=== PATIENT | male | born 1960 | race Caucasian/White ===

== ENCOUNTER 2019-03-07 18:01 | Inpatient (IN) ==
[2019-03-07] MEDS ORDERED: NS 1,000 ML IV ONE (18:22)
[2019-03-07 18:42] LABS: BASO# 0.02 X1000 (0.0-0.2); BASO% 0.2 % (0.0-0.8); EOS# 0.01 X1000 (0.0-0.7); EOS% 0.1 % (0.0-10.0); HEMATOCRIT 40.1 % (42.0-52.0); HEMOGLOBIN 14.5 g/dL (14.0-18.0); IMM GRAN# 0.04 X1000 (0.0-0.04); IMM GRAN% 0.3 % (0.0-0.5); LYMPH# 2.39 X1000 (1.2-3.4); LYMPH% 18.4 % (20.5-51.1); MCH 34.9 PG (27-31); MCHC 36.2 g/dL (33-37); MCV 96.4 FL (81-99); MONO# 1.02 X1000 (0.11-0.59); MONO% 7.9 % (1.7-9.3); MPV 9.5 FL (7.4-10.4); NEUT% 73.1 % (42.2-75.2); PLT 262 X1000 (130-400); RBC 4.16 XMIL (4.7-6.1); RDW 14.6 % (11.5-14.5); WBC 12.98 X1000 (4.8-10.8)
--- NOTE | 2019-03-07 18:49 | Diag Imaging Result Doc PS360 ---
EXAM: CHEST-2 VIEWS 03/07/2019 HISTORY: short of breath TECHNIQUE: PA and lateral chest COMMENT: There are no previous studies available for comparison. There is a calcified granuloma in the lateral left lower lobe and a calcified node in the left hilum. The lungs are otherwise clear. The heart and pulmonary vascularity are within normal limits. IMPRESSION: No evidence of acute disease. Electronically signed by Manav Morales 03/07/2019 6:47 PM
--- NOTE | 2019-03-07 18:49 | PROVIDER DOCUMENTATION ---
This chart was entered by Sarah Valdez Scribe, acting as scribe for Monty Retana MD. HPI-Syncope/Dizziness - General Source: patient - History of Present Illness-Syncope/Dizzy Prior Episodes: reports: multiple episodes today, recent history Onset/Duration: reports: 1 week ago Timing: reports: still present, intermittent Symptoms prior to episode: reports: none Context: reports: felt faint Loss of Consciousness: no loss of consciousness Current Symptoms: reports: weakness, dizzy. denies: chest pain, short of breath, nausea - Dizziness Severity in ED: reports: moderate Dizziness Related Current/Associated Symptoms: reports: weakness, lightheaded, dizzy. denies: sense of spinning, sense of falling, syncope, sense of confusion Any recent trauma/injury?: reports: none Modifying Factors: improves with: nothing Patient usually:: reports: walks without assistance <Monty Retana - Last Filed: 03/07/19 18:49> <Jd Cruz - Last Filed: 03/07/19 21:29> - General Chief Complaint: Dizziness Stated Complaint: DIZZY, LOW B/P, NEAR SYNCOPE Time Seen by Provider: 03/07/19 18:15 - History of Present Illness-Syncope/Dizzy Nature of Presenting Problem: pt is a 58 yr old male presenting with 1 week complaint of dizziness, weakness and low blood pressure. pt reports hx of HTN, stopped taking his medications due to low BP. pt denies any shortness of breath, no chest pain or syncope, pt reports he feels like he is going to pass out. (Monty Retana) Review of Systems - Adult - REVIEW OF SYSTEMS - ADULT Constitutional: reports: fatique. denies: chills, fever Eyes: denies: blurred vision, double vision Ears, Nose, Mouth & Throat: denies: ear pain, sinus problem, throat pain Cardiovascular: denies: chest pain, palpitations, syncope Respiratory: denies: cough, dyspnea on exertion, shortness of breath Gastrointestinal: denies: nausea, vomiting Genitourinary: reports: no symptoms reported Musculoskeletal: denies: back pain, muscle weakness, neck pain Integumentary: reports: no symptoms reported Neurological: reports: dizziness/vertigo. denies: headache/migraines, syncope Psychiatric: reports: no symptoms reported Endocrine: reports: no symptoms reported Hematologic/Lymphatic: reports: no symptoms reported Allergic/Immunologic: reports: no symptoms reported All Other Systems: Reviewed and Negative <Monty Retana - Last Filed: 03/07/19 18:49> Past History - Adult - PAST MEDICAL HISTORY-ADULT Review of Records: reports: Old Records Reviewed, Nursing Assessment Review, Medications Reviewed, Social history reviewed & non-contributory. Major Childhood Illnesses: reports: denies history Cardiovascular: reports: denies history Respiratory: reports: denies history Gastrointestinal: reports: denies history Obstetrical/Gynecological: reports: denies history Genitourinary: reports: denies history Musculoskeletal: reports: denies history Neurological: reports: denies history Endocrine/Immune: reports: denies history Other Conditions: reports: denies history - IMMUNIZATION STATUS Childhood Immunizations: See Nurse Assessment Flu Vaccine: See Nurse Assessment - FAMILY HISTORY Family History: reviewed, not pertinent - SOCIAL HISTORY Smoking: denies Substance Use: denies Living Situation: family <Monty Retana - Last Filed: 03/07/19 18:49> Physical Exam-General - PHYSICAL EXAM-ADULT Initial Vital Signs Reviewed: Yes - CONSTITUTIONAL General Appearance: alert, no apparent distress - EYES Eyes: PERRL/EOMI - HEAD, EARS, NOSE, MOUTH & THROAT HENMT: normocephalic/atraumatic, moist mucous membranes - NECK Neck: full range of motion, supple - RESPIRATORY Respiratory: lungs clear, normal breath sounds - CARDIOVASCULAR Cardiovascular: normal peripheral pulses, no edema, no gallop, tachycardia - GASTROINTESTINAL (ABDOMEN) Abdominal Exam: non tender, soft, no organomegaly, no pulsatile mass - LYMPHATIC Lymphatic: no adenopathy - MUSCULOSKELETAL Back Exam: normal inspection, no CVA tenderness Extremity: normal range of motion, non-tender, normal gait, normal inspection - SKIN Integumentary: normal turgor, erythema (diffuse, mild), other (hot) - NEUROLOGIC Neurologic: finance lead II-XII nml as tested, grossly normal, no motor/sensory deficits - PSYCHIATRIC Psych/Mental Status: normal mood/affect, normal thought content, normal thought process, oriented x 3 <Monty Retana - Last Filed: 03/07/19 18:49> Progress - PLAN OF CARE/RESULTS Result Diagrams: 03/07/19 18:14 - EKG 1 Time of EKG reading by physician:: 18:15 EKG Read and Signed by:: Monty Retana EKG Interpretation (*Must complete 3 of following elements*): Abnormal (possible anterior infarct, age undetermined. st and t wave abnormality consider inferolateral ischemia) Rate: 107 Rhythm: sinus tachycardia [place]: normal QRS: normal <Monty Retana - Last Filed: 03/07/19 18:49> - PLAN OF CARE/RESULTS Result Diagrams: 03/07/19 18:14 03/07/19 18:14 - REASSESSMENT Reassessment #1 Time Reassessed: 20:45 Status: unchanged (CK 1345, MB 23, RECENT [place] OR NEW ONSET RHABO OR SIMPLE DEHYDRATION W/ ARF) - CONSULTS/PCP/HOSPITALIST Notification #1 *Consult/PCP/Hospitalist*: DR PRICE Time Discussed: 20:43 Consult Disposition: Admit #2 Consult: DR KOENIG Time Discussed: 21:26 (DISCUSSED CONSULT, CASE, MANAGEMENT) <Jd Cruz - Last Filed: 03/07/19 21:29> - PLAN OF CARE/RESULTS Progress/Plan/Lab Results: Vital Signs - 8 hr 03/07/19 18:05 03/07/19 18:47 03/07/19 18:50 Temperature 97.9 F Pulse Rate 108 H 95 H 107 H Respiratory Rate 18 17 17 Blood Pressure 81/52 O2 Sat by Pulse Oximetry 95 95 03/07/19 19:00 03/07/19 19:10 03/07/19 19:20 Temperature Pulse Rate 92 H 97 H 102 H Respiratory Rate 13 18 16 Blood Pressure O2 Sat by Pulse Oximetry 95 95 88 L 03/07/19 19:30 03/07/19 19:40 03/07/19 19:50 Temperature Pulse Rate 94 H 94 H 101 H Respiratory Rate 26 H 22 18 Blood Pressure O2 Sat by Pulse Oximetry 95 96 95 03/07/19 19:59 03/07/19 20:00 Temperature Pulse Rate 98 H 94 H Respiratory Rate 16 15 Blood Pressure 98/86 O2 Sat by Pulse Oximetry 97 97 Laboratory Results - last 24 hr 03/07/19 03/07/19 03/07/19 18:14 18:14 18:14 WBC 12.98 H RBC 4.16 L Hgb 14.5 Hct 40.1 L MCV 96.4 MCH 34.9 H MCHC 36.2 RDW Std Deviation 14.6 H Plt Count 262 MPV 9.5 Immature Gran % (Auto) 0.3 Neut % (Auto) 73.1 Lymph % (Auto) 18.4 L Martin % (Auto) 7.9 Eos % (Auto) 0.1 Baso % (Auto) 0.2 Immature Gran # (Auto) 0.04 Neut # (Auto) 9.50 H Lymph # (Auto) 2.39 Martin # (Auto) 1.02 H Eos # (Auto) 0.01 Baso # (Auto) 0.02 PT INR PTT (Actin FS) D-Dimer, Quantitative < 0.27 Specimen Type Sample Site pH pCO2 pO2 HCO3 Base Excess Oxyhemoglobin ABG O2 Sat (Calculated) ABG O2 Saturation ABG Carboxyhemoglobin ABG Methemoglobin Manuel Test A-a O2 Difference Total Hemoglobin Lactate Blood Gas Modality FiO2 % Sodium 136 Potassium 3.4 L Chloride 85 L Carbon Dioxide 23 L Anion Gap 28 BUN 53 H Creatinine 6.4 H Estimated GFR/1.73 m2 9 BUN/Creatinine Ratio 8 Glucose 103 POC Glucose Calculated Osmolality 287 Calcium 9.9 Total Bilirubin 1.08 H AST 186 H ALT 87 H Alkaline Phosphatase 91 Creatine Kinase 1345 H Creatine Kinase Index 1.8 CK-MB (CK-2) 23.59 H Troponin T Total Protein 7.6 Albumin 5.0 Globulin 2.6 Albumin/Globulin Ratio 1.9 Plasma Lactate Urine Source Urine Color Urine Turbidity Urine pH Ur Specific [place] Urine Protein Ur Glucose (Stick) Ur Ketones (Stick) Urine Blood Urine Nitrite Urine Bilirubin Urobilinogen Dipstick Urine Leukocytes Urine WBC (Auto) Urine RBC (Auto) U Epithel Cells (Auto) Urine Bacteria (Auto) Urine Crystals Small Round Cells Urine Casts Urine Yeast-like Cells 03/07/19 03/07/19 03/07/19 18:14 18:14 19:40 WBC RBC Hgb Hct MCV MCH MCHC RDW Std Deviation Plt Count MPV Immature Gran % (Auto) Neut % (Auto) Lymph % (Auto) Martin % (Auto) Eos % (Auto) Baso % (Auto) Immature Gran # (Auto) Neut # (Auto) Lymph # (Auto) Martin # (Auto) Eos # (Auto) Baso # (Auto) PT 13.3 INR 0.94 PTT (Actin FS) 26.7 D-Dimer, Quantitative Specimen Type Sample Site pH pCO2 pO2 HCO3 Base Excess Oxyhemoglobin ABG O2 Sat (Calculated) ABG O2 Saturation ABG Carboxyhemoglobin ABG Methemoglobin Manuel Test A-a O2 Difference Total Hemoglobin Lactate Blood Gas Modality FiO2 % Sodium Potassium Chloride Carbon Dioxide Anion Gap BUN Creatinine Estimated GFR/1.73 m2 BUN/Creatinine Ratio Glucose POC Glucose Calculated Osmolality Calcium Total Bilirubin AST ALT Alkaline Phosphatase Creatine Kinase Creatine Kinase Index CK-MB (CK-2) Troponin T 0.025 Total Protein Albumin Globulin Albumin/Globulin Ratio Plasma Lactate Urine Source CLEAN CATCH Urine Color YELLOW Urine Turbidity HAZY Urine pH 5.5 Ur Specific [place] 1.023 Urine Protein 200 A Ur Glucose (Stick) NEGATIVE Ur Ketones (Stick) TRACE A Urine Blood MODERATE A Urine Nitrite NEGATIVE Urine Bilirubin SMALL A Urobilinogen Dipstick 2 A Urine Leukocytes TRACE A Urine WBC (Auto) <10 Urine RBC (Auto) <10 U Epithel Cells (Auto) <10 Urine Bacteria (Auto) NEGATIVE Urine Crystals Not Reportable Small Round Cells Not Reportable Urine Casts GRANULAR PRESENT Urine Yeast-like Cells Not Reportable 03/07/19 03/07/19 03/07/19 19:54 20:30 20:34 WBC RBC Hgb Hct MCV MCH MCHC RDW Std Deviation Plt Count MPV Immature Gran % (Auto) Neut % (Auto) Lymph % (Auto) Martin % (Auto) Eos % (Auto) Baso % (Auto) Immature Gran # (Auto) Neut # (Auto) Lymph # (Auto) Martin # (Auto) Eos # (Auto) Baso # (Auto) PT INR PTT (Actin FS) D-Dimer, Quantitative Specimen Type ARTERIAL Sample Site L RADIAL pH 7.46 H pCO2 36 pO2 111 H HCO3 26.5 H Base Excess 2.0 Oxyhemoglobin 96.4 ABG O2 Sat (Calculated) 18.8 ABG O2 Saturation 99.1 ABG Carboxyhemoglobin 1.60 ABG Methemoglobin 1.2 Manuel Test YES A-a O2 Difference -6.0 Total Hemoglobin 13.8 Lactate 1.60 Blood Gas Modality ROOM AIR FiO2 % 21.0 Sodium Potassium Chloride Carbon Dioxide Anion Gap BUN Creatinine Estimated GFR/1.73 m2 BUN/Creatinine Ratio Glucose POC Glucose 103 Calculated Osmolality Calcium Total Bilirubin AST ALT Alkaline Phosphatase Creatine Kinase Creatine Kinase Index CK-MB (CK-2) Troponin T Total Protein Albumin Globulin Albumin/Globulin Ratio Plasma Lactate 1.8 Urine Source Urine Color Urine Turbidity Urine pH Ur Specific [place] Urine Protein Ur Glucose (Stick) Ur Ketones (Stick) Urine Blood Urine Nitrite Urine Bilirubin Urobilinogen Dipstick Urine Leukocytes Urine WBC (Auto) Urine RBC (Auto) U Epithel Cells (Auto) Urine Bacteria (Auto) Urine Crystals Small Round Cells Urine Casts Urine Yeast-like Cells Orders Category Date Time Status CHEST-2 VIEWS [RAD] Stat Exams 03/07/19 18:22 Completed ABG [RESP] Routine Lab 03/07/19 20:30 Completed C DIFF TOXIN [STOOL] Stat Lab 03/07/19 18:22 Uncollected CBC WITH ELECTRONIC DIFF [HEME] Stat Lab 03/07/19 18:14 Completed CK PROFILE [SP CHEM] Stat Lab 03/07/19 18:14 Completed COMPREHENSIVE METABOLIC PANEL [CHEM] Stat Lab 03/07/19 18:14 Completed D-DIMER [COAG] Stat Lab 03/07/19 18:14 Completed LACTATE, PLASMA [CHEM] Stat Lab 03/07/19 20:34 Completed PROTIME WITH INR [COAG] Stat Lab 03/07/19 18:14 Completed PTT [COAG] Stat Lab 03/07/19 18:14 Completed TROPONIN T Stat Lab 03/07/19 18:14 Completed URINALYSIS W/POSS RFLX CULT [URINALYSIS] Stat Lab 03/07/19 19:40 Completed URINE CULTURE [RM] Routine Lab 03/07/19 20:12 Received URINE MANUAL MICROSCOPIC [URINALYSIS] Stat Lab 03/07/19 19:40 Completed 0.9% Sodium Chloride Inj [Ns] 1,000 ml Med 03/07/19 18:22 Discontinued IV 999 mls/hr EKG [EKG] Stat Ther 03/07/19 18:08 Ordered Departure <Monty Retana - Last Filed: 03/07/19 18:49> - Departure Date of Disposition Decision: 03/07/19 Time of Disposition Decision: 20:08 Certified Medical Emergency: Emergent - Critical Care Note This patient required my direct & personal management of CC.: Yes Total Time (mins): 40 Critical Care Statement: This patient required my direct personal management to treat or rule out processes, the absence of which, could potentiallly result in sudden, clinically significant life or limb threatening deterioration. <Jd Cruz - Last Filed: 03/07/19 21:29> - Departure DIAGNOSIS: Rhabdomyolysis, Acute renal failure (ARF), Hypotension, Leukocytosis, unspecified Disposition: ADMITTED INPATIENT 09 Condition: Fair Referrals and Follow-Ups: None,PCP [Primary Care Provider] - Attestation - Physician/ FLORESITA Attestation The physician spent face to face time with patient:: Yes Advanced Practice Provider documentation review:: Supervising physician onsite and consulted in the evaluation and care of this patient. The physician did have a face to face encounter with the patient. <Jd Cruz - Last Filed: 03/07/19 21:29> This chart was documented by the indicated scribe, (Sarah Valdez Scribe) and accurately reflects the services I performed and decisions made by me, Monty Retana MD, as attested by the provider's signature.
[2019-03-07 19:05] LABS: PROTIME 13.3 Seconds (11.0-16.0)
[2019-03-07 19:06] LABS: INR 0.94; PTT 26.7 Seconds (22.3-41.8)
[2019-03-07 19:26] LABS: CALCIUM 9.9 mg/dL (8.8-10.2)
[2019-03-07 19:27] LABS: ALB/GLOB RATIO 1.9; CREATININE 6.4 mg/dL (0.7-1.2); POTASSIUM 3.4 mmol/L (3.5-5.1); TOTAL BILIRUBIN 1.08 mg/dL (0.20-1.00); TOTAL PROTEIN 7.6 g/dL (6.3-8.3)
[2019-03-07 19:41] LABS: CK INDEX 1.8 (0.0-2.5); CK-MB 23.59 ng/mL (0.0-5.0)
[2019-03-07 20:04] LABS: URINE SOURCE CLEAN CATCH
[2019-03-07 20:06] LABS: BILIRUBIN URINE SMALL (NEGATIVE); BLOOD URINE MODERATE (NEGATIVE); COLOR YELLOW; GLUCOSE URINE NEGATIVE (NEGATIVE); KETONE URINE TRACE mg/dL (NEGATIVE); LEUKOCYTES URINE TRACE (NEGATIVE); NITRITE URINE NEGATIVE (NEGATIVE); PH URINE 5.5; PROTEIN URINE 200 mg/dL (NEGATIVE); SP GRAVITY URINE 1.023; TURBIDITY URINE HAZY (CLEAR); UROBILINOGEN URINE 2 mg/dL (NORMAL)
[2019-03-07 20:11] LABS: UR EPITHELIAL CELLS <10 /HPF (<10); URINE BACTERIA NEGATIVE /HPF; URINE RBC <10 /HPF (<10); URINE WBC <10 /HPF (<10)
[2019-03-07 20:28] LABS: URINE CASTS GRANULAR PRESENT
[2019-03-07 20:39] LABS: ALLEN TEST YES; BLOOD TYPE ARTERIAL; HCO3-(ACT) 26.5 mmoll (20.0-26.0); METHB 1.2 % (0.0-1.5); O2(CT) 18.8 mL/dL (15.0-23.0); O2HB 96.4 % (95.0-99.0); PCO2(98.6) 36 mmHg (35-45); PO2(98.6) 111 mmHg (60-100); SAMPLE BLOOD; SAO2 99.1 % (95.0-100.0); THB 13.8 g/dL (11.5-17.4); pH(98.6) 7.46 (7.35-7.45)
[2019-03-07 20:40] LABS: MODALITY ROOM AIR
[2019-03-07] MEDS ORDERED: TYLENOL PO PRN (21:58)
[2019-03-07] MEDS ORDERED: ZOFRAN IV PRN (21:58)
[2019-03-07] MEDS: HEPARIN SUBQ SCH (23:49)
[2019-03-07] MEDS: NS 1,000 ML IV SCH (23:49)
--- NOTE | 2019-03-08 03:53 | HISTORY AND PHYSICAL ---
ADDENDUM: Patient seen and examined by myself. Full note dictated and discussed with nurse practitioner. Patient presented to the hospital after a week of feeling tired and fatigued. Patient notes that he has blood pressure medication at home, lisinopril/hydrochlorothiazide, but he stopped that approximately a week ago because he felt as though his blood pressures were low. Symptoms continued to worsen. His fatigue continued to worsen. Does note that his urine had gotten dark a couple of days ago and actually thought as though he had noted some blood. He finally came to the ER today where he was diagnosed with acute renal failure with a creatinine at 6.5, BUN at 53, CPK at 1375. We will admit patient to the hospital. Obviously hold his lisinopril/hydrochlorothiazide. We will continue to follow. We will ask Dr. Ricci to see in consultation as I am concerned that his rhabdomyolysis is not the true cause of his acute renal failure. Hopefully, this will continue to improve with hydration. cc: Corby Perez MD
--- NOTE | 2019-03-08 03:56 | HISTORY AND PHYSICAL ---
PRIMARY CARE PHYSICIAN: None. CHIEF COMPLAINT: Dizziness and syncope like episodes x1 week. HISTORY OF PRESENT ILLNESS: This is a 58-year-old male who presented to the ER today with complaints of dizziness and syncope-like episodes for greater than a week. The patient has a past medical history of hypertension and hyperlipidemia. The patient states that he was on lisinopril/hydrochlorothiazide up until about a week ago when he stopped it because he was noticing his blood pressures were low. The patient states that he was on high cholesterol medicine. He does not remember which type and his doctor in [place] took him off of it a year ago. The patient denies any fatigue, chest pain or shortness of breath. States that he has been hoarse. He also states that he has been having leg and finger cramps for greater than a week. The patient states that over the past few days, he noticed that his urine is very dark and he noticed this also a week ago. The patient denies any nausea and vomiting but states he has had some diarrhea. The patient denies any actual syncopal episode, but states that he has had weakness, lightheadedness and dizziness to the point to where he had to hold onto the wall because he felt like he was going to fall. PAST MEDICAL HISTORY: Significant for hypertension and hyperlipidemia. PAST SURGICAL HISTORY: Hernia repair 1 year ago in [place], [place]. FAMILY HISTORY: Mother of lung cancer. Father of cirrhosis of liver. He has 2 brothers. They are living. One has had a stroke. SOCIAL HISTORY: Patient is actually from [place], but was living in [place] up until recently. He moved to [place] and works on a [employer]. Denies any smoking history. States that he does drink alcohol daily and this includes a few beers and a shot before bedtime to help him sleep. ALLERGIES: No known drug allergies. MEDICATIONS: The patient states that he was taking lisinopril/hydrochlorothiazide up until a week ago where he stopped because of low blood pressure. The patient denies any other medications. REVIEW OF SYSTEMS: A 14-point review of system was conducted with this patient. All were negative except for the pertinent positives mentioned above in HPI. LABS/DIAGNOSTICS: White blood cell count 12.98, hemoglobin 14.5, hematocrit 40.1, platelet count 262,000. PT 13.3, INR 0.9. D-dimer less than 0.27. ABGs include pH of 7.46, CO2 36, PO2 of 111, bicarb 26.5, O2 saturation 99%. Sodium 136, potassium 3.4, chloride 85, CO2 23, BUN of 53, creatinine of 6.4 with a GFR of 9. Total bilirubin 1.08, AST of 186, ALT 87, creatine kinase 1345. CK-MB is 23.59. Troponin 0.025. Urine is positive for protein, trace ketones, moderate amount of blood in the urine, small amount of bilirubin, trace leukocytes. Urine casts were present. Chest x-ray was done on 03/07/2019 and shows no evidence of acute disease. PHYSICAL EXAM: VITAL SIGNS: Heart rate 98, respiratory rate 16, blood pressure 98/86 with a map of 93, O2 sats 97% on room air. GENERAL: Mr. Estrada is a pleasant 58-year-old male who is resting in the ER stretcher in no acute distress. He is alert and oriented x4. He is able answer questions appropriately. HEENT: Head is atraumatic and normocephalic. Pupils are equal, round, reactive to light at 3 mm, bilaterally brisk. Oral mucosa is slightly dry. NECK: Supple. Trachea midline. CARDIOVASCULAR: Patient has S1, S2 noted. No murmurs, gallops, or rubs appreciated with a regular rate and rhythm. PULMONARY: The patient has symmetrical chest expansion bilaterally. Lungs are clear to auscultation in bilateral ruelas. ABDOMEN: Soft and nondistended. No tenderness noted. Bowel sounds are present x4. EXTREMITIES: No edema noted. Pedal pulses are +2. Capillary refill is less than 3 seconds. INTEGUMENTARY: The patient's skin is pink, warm, and dry. NEUROLOGICAL: Patient is alert and oriented x4. He moves all extremities. Follows commands. Does not appear to have any focal deficits at this time. ASSESSMENT AND PLAN: 1. Rhabdomyolysis. We will rehydrate the patient with normal saline 150 an hour and a repeat CK in the morning. 2. Acute kidney injury. We will consult Dr. Ricci for management. Ordered a renal retroperitoneal ultrasound to rule out obstruction. 3. Hypertension. Blood pressure within normal range. We will not start him on any medications at this time. 4. EKG shows possible anterior infarct with a inferior lateral ischemia. We will order echo, repeat EKG and repeat his troponin level in the am. 5. Daily alcohol intake will monitor the patient for withdrawals. Dictated by LIV Loaiza for Corby Perez MD cc: MD Bethel Ruiz MD MTDD
--- NOTE | 2019-03-08 07:15 | EKG Report ---
Test Performed on : 03/08/2019 06:57:20 AM Test Reason : chest pain Blood Pressure : / mmHG Vent. Rate : 065 BPM Atrial Rate : 065 BPM P-R Int : 144 ms QRS Dur : 094 ms QT Int : 438 ms P-R-T Axes : 057 051 078 degrees QTc Int : 455 ms Normal sinus rhythm. Nonspecific ST and T wave abnormality Abnormal ECG When compared with ECG of 07-MAR-2019 18:11, (Unconfirmed) Vent. rate has decreased BY 42 BPM T wave inversion no longer evident in Inferior leads T wave inversion no longer evident in Lateral leads Confirmed by Kar POON, Gino Roberts ([id number]) on 03/12/2019 12:41:09 PM
--- NOTE | 2019-03-08 07:17 | EKG Report ---
Test Performed on : 03/07/2019 6:11:56 PM Test Reason : dizziness Blood Pressure : / mmHG Vent. Rate : 107 BPM Atrial Rate : 107 BPM P-R Int : 140 ms QRS Dur : 084 ms QT Int : 360 ms P-R-T Axes : 074 031 088 degrees QTc Int : 480 ms Sinus tachycardia. Possible Anterior infarct , age undetermined ST & T wave abnormality, consider inferolateral ischemia Abnormal ECG No previous ECGs available Unconfirmed Result
[2019-03-08] MEDS: NS 1,000 ML IV SCH ×3 (07:26→23:33)
[2019-03-08 07:53] LABS: BASO# 0.02 X1000 (0.0-0.2); BASO% 0.3 % (0.0-0.8); EOS# 0.05 X1000 (0.0-0.7); EOS% 0.7 % (0.0-10.0); HEMATOCRIT 37.9 % (42.0-52.0); HEMOGLOBIN 12.9 g/dL (14.0-18.0); LYMPH# 1.52 X1000 (1.2-3.4); LYMPH% 20.8 % (20.5-51.1); MONO# 0.81 X1000 (0.11-0.59); MONO% 11.1 % (1.7-9.3); MPV 9.7 FL (7.4-10.4); NEUT% 67.1 % (42.2-75.2); PLT 211 X1000 (130-400); RBC 3.79 XMIL (4.7-6.1); RDW 14.6 % (11.5-14.5)
[2019-03-08 08:12] LABS: ALB/GLOB RATIO 1.5; ALBUMIN 3.8 g/dL (3.5-5.0); CALCIUM 8.9 mg/dL (8.8-10.2); CREATININE 3.6 mg/dL (0.7-1.2); MAGNESIUM 2.1 mg/dL (1.5-2.7); PHOSPHORUS 3.7 mg/dL (2.7-4.5); POTASSIUM 3.2 mmol/L (3.5-5.1); TOTAL BILIRUBIN 0.92 mg/dL (0.20-1.00); TOTAL PROTEIN 6.3 g/dL (6.3-8.3)
[2019-03-08 08:21] LABS: CHOLESTEROL 257 mg/dL (0-200); HDL 109 mg/dL (35-55); LDL 125 mg/dL; TRIGLYCERIDES 113 mg/dL (39-160); VLDL 23 mg/dL
[2019-03-08 08:32] LABS: CK INDEX 1.7 (0.0-2.5); CK-MB 10.95 ng/mL (0.0-5.0)
[2019-03-08] MEDS: HEPARIN SUBQ SCH ×2 (09:43→19:03)
--- NOTE | 2019-03-08 11:16 | Diag Imaging Result Doc PS360 ---
US RENAL 2 (RETROPER) COMPLETE - 03/08/2019 INDICATION: Acute Kidney Injury TECHNIQUE: COMPARISON: None FINDINGS: The kidneys are normal in size, contour, and echotexture. No hydronephrosis, mass, or cyst. The prostate gland is normal. The bladder is collapsed. The right kidney measures 10.3 x 4.1 x 4.6 cm. The left kidney measures 10.4 x 3.6 x 5.4 cm. IMPRESSION: Negative exam. Electronically signed by Sigifredo Nagy 03/08/2019 11:13 AM
--- NOTE | 2019-03-08 14:47 | PROGRESS NOTE ---
DATE: 03/08/2019 SUBJECTIVE: Patient reports feeling fine. There is no dizziness at all at this time. OBJECTIVE: Vital Signs: Temperature 98.3 degrees, heart rate 97, respiratory rate 18, blood pressure 108/67, and O2 saturation 96% on room air. General: This is a 58-year-old male lying in bed in no acute distress. Cardiovascular: S1, S2 heard. No murmurs, gallops, or rubs. Regular rate and rhythm. Respiratory: Clear bilaterally to auscultation. No work of breathing or using accessory muscles. Abdomen: Soft and nontender to palpation. Bowel sounds present. No organomegaly. Extremities: No clubbing, cyanosis, or edema. Peripheral pulses present in both legs. Neurological: Patient is alert and oriented x3. Moves all 4 extremities. LABORATORY DATA: White cell count 7.3, hemoglobin 12.9, hematocrit 37.9, and platelets 211,000. BMP reveals creatinine 3.6, potassium 3.2, sodium 135, and creatine kinase is 653. ASSESSMENT AND PLAN: 1. Acute kidney injury with rhabdomyolysis. The patient is on normal saline. Renal function is recovering nicely. At this point, we will continue with same management. In this case, normal saline 150 mL per hour. Also CK is getting better. 2. Hypertension. Blood pressure is under control. We will continue with same management. 3. Acute kidney injury. Stable. Dr. Ricci has been consulted. 4. Disposition: I think this patient will be ready to be discharged during the next 48 hours. cc: Reji Sanchez MD MTDErica
--- NOTE | 2019-03-08 16:10 | NEPHROLOGY CONSULTATION ---
DATE: 03/08/2019 REASON FOR ADMISSION: Syncopal episodes, dizziness, acute renal failure. REASON FOR CONSULTATION: Syncopal episodes, dizziness, acute renal failure. CONSULTING PHYSICIAN: Dr. Perez HISTORY OF PRESENT ILLNESS: his is a 58-year-old gentleman, who works as a bulk driver on a truck yard who came into the emergency room on day of admission secondary to dizziness and syncopal episodes. The patient states that he works outside but tries to drink enough water. He states he had been being dizzy when he got home from work. He would check his blood pressure. It would be low and he had been holding his lisinopril hydrochlorothiazide because of that. He continued with cramps and weakness dizziness and came into the emergency room where he was found to have a creatinine of 6.4. Patient also noted to have an elevated CK of 1345 and a CK MB of 23.59. He was admitted to the hospital. His GUILLERMINA inhibitors been held as well as his thiazide and he has been fluid resuscitated over night. This morning, his creatinine has improved drastically and today is at 3.6. His CK is down to 653 and CK-MB is down to 10.9. The patient is voiding. He states that he had not noticed any change in the color of his urine but that he realized he was not making as much urine although his frequency had increased. The patient states that he does know he has some enlarged prostate issues. Denies any nausea or vomiting but did have some diarrhea. States his appetite has just simple been decreased. PAST MEDICAL HISTORY: Hypertension. PAST SURGICAL HISTORY: Hernia repair. ALLERGIES: None. MEDICATIONS ARE: Lisinopril hydrochlorothiazide. FAMILY HISTORY: Lung cancer, cirrhosis. CVA. SOCIAL HISTORY: Denies smoking does use oral tobacco. Does use ETOH daily prior to bed. No drug use. REVIEW OF SYSTEMS: Pertinent positives noted above in the HPI. PHYSICAL EXAMINATION: Vital Signs: Temperature 98 degrees, pulse 97, respiratory rate 18, blood pressure 108/67. Intake has not been documented. He made 130 mL of urine. General: This is a middle-aged gentleman resting in bed. He is awake and alert. He is in no acute distress. HEENT: Normocephalic, atraumatic. Oral mucosa moist. Conjunctivae are pink. Neck: Supple. Neck veins flat. Cardiovascular: Regular rate and rhythm. No murmur noted. Pulmonary: He is clear bilaterally. Equal excursion. Abdomen: Soft, positive bowel sounds. : Voiding. Extremities: No clubbing, cyanosis. Moving all extremities. Integumentary: Skin is warm and dry. Neurologic: Grossly nonfocal. LAB DATA: Sodium 135, potassium 3.2. CO2 25, BUN 55, creatinine 3.6. He has a CK of 653 and a CK-MB of 10.9. WBC 7.3, hemoglobin 12.5. Urine with 2+ protein, trace ketone. Trace leukocytes. Chest x-ray is negative. Ultrasound is pending. ASSESSMENT AND PLAN: 1. Acute kidney injury likely secondary to volume depletion and concurrent ARB use. Patient does have a component of rhabdomyolysis. He has had significant improvement with IV resuscitation overnight. We will continue IV fluids at least through tomorrow. The patient did indicate that he has had issues with his prostate in the past. He has had increased frequency. We are awaiting his renal ultrasound to rule out any obstructive uropathy component. 2. Hypertension. Currently blood pressure is tightly controlled without medications. Would add adjunct therapy if warranted. We would hold his GUILLERMINA inhibitor until he is completely resolved from this acute kidney injury. Dictated by LIV Amaya for Bethel Ricci MD Face to face encounter, data reviewed, discussed with Huyen Lyons on 03/08/19. I agree with the above assessment and plan of care. cc: Bethel Ricci MD [facility]
--- NOTE | 2019-03-08 20:24 | ECHO REPORT ---
ORDER DATE: 03/08/2019 INDICATION: Rhabdomyolysis. FINDINGS: 1. The right atrium appears normal in size at 3.2 cm. 2. Trace tricuspid regurgitation. Insufficient data to estimate the RV systolic pressure. 3. Normal RV size and systolic function. 4. No significant pulmonic insufficiency. 5. Normal left atrial size with a volume index of 27, dimension of 2.6 cm. 6. No mitral valve prolapse. Trace mitral regurgitation. No evidence of mitral stenosis. 7. Normal LV size, end-diastolic dimension of 4.1. Normal wall thicknesses with a posterior and interventricular septal wall thickness of 0.8 cm each. Normal LV systolic function. Estimated EF of 55% with normal wall motion. 8. The aortic valve opens well. It is trileaflet. No evidence of stenosis or insufficiency. 9. The aorta appears normal in visualized segments. 10. No pericardial effusion seen. cc: Aj Guadarrama MD
[2019-03-09] MEDS: HEPARIN SUBQ SCH (01:49)
[2019-03-09] MEDS: NS 1,000 ML IV SCH (06:42)
[2019-03-09 07:28] LABS: BASO# 0.01 X1000 (0.0-0.2); BASO% 0.2 % (0.0-0.8); EOS# 0.05 X1000 (0.0-0.7); EOS% 0.8 % (0.0-10.0); HEMATOCRIT 35.1 % (42.0-52.0); HEMOGLOBIN 11.8 g/dL (14.0-18.0); LYMPH# 1.14 X1000 (1.2-3.4); LYMPH% 17.7 % (20.5-51.1); MCH 34.2 PG (27-31); MCHC 33.6 g/dL (33-37); MCV 101.7 FL (81-99); MONO# 0.71 X1000 (0.11-0.59); MPV 9.6 FL (7.4-10.4); NEUT# 4.53 X1000 (1.4-6.5); NEUT% 70.3 % (42.2-75.2); PLT 150 X1000 (130-400); RBC 3.45 XMIL (4.7-6.1); RDW 13.9 % (11.5-14.5); WBC 6.44 X1000 (4.8-10.8)
[2019-03-09 08:23] LABS: AGAP 9; ALB/GLOB RATIO 1.6; ALBUMIN 3.5 g/dL (3.5-5.0); ALKALINE PHOSPHATASE 59 U/L (32-122); BUN 37 mg/dL (8-22); CALCIUM 8.3 mg/dL (8.8-10.2); CHLORIDE 101 mmol/L (98-107); COSMO 283; CREATININE 1.2 mg/dL (0.7-1.2); ESTIMATED GFR > 60; GLUCOSE 104 mg/dL (70-104); GOT 53 U/L (10-34); GPT 43 U/L (10-44); POTASSIUM 3.7 mmol/L (3.5-5.1); SODIUM 137 mmol/L (136-145); TCO2 27 mmol/L (25-35); TOTAL BILIRUBIN 0.92 mg/dL (0.20-1.00); TOTAL PROTEIN 5.7 g/dL (6.3-8.3)
[2019-03-09 08:34] VITALS: BP 125/82
--- NOTE | 2019-03-09 15:42 | DISCHARGE SUMMARY ---
ADMISSION DATE: 03/07/2019 DISCHARGE DATE: 03/09/2019 ADMITTING DIAGNOSES: 1. Rhabdomyolysis. 2. Acute kidney injury. 3. Hypertension. 4. Daily alcohol intake. DISCHARGE DIAGNOSES: 1. Acute kidney injury with rhabdomyolysis. 2. Hypertension. 3. Daily alcohol intake. No signs of withdrawals. CONSULTATIONS: Dr. Ricci for the acute kidney injury. PROCEDURES AND SURGERIES: None. HOSPITAL COURSE: Mr. Cong Estrada is a 58-year-old male who presented to the ER with complaints of dizziness and syncope type episodes that had been going on for over a week. He stopped his lisinopril/hydrochlorothiazide a week prior to admission because he started noticing his blood pressures were getting low. He has been complaining of leg and finger cramps for over a week, noticed his urine was getting dark. He had some diarrhea. He was admitted and was started on aggressive IV fluid hydration and had daily CKs drawn. Dr. Ricci was consulted. Ultrasound was ordered. He was monitored for alcohol withdrawals. His renal ultrasound was normal. His echocardiogram was normal, EF of 55%. Dr. Ricci felt it was acute kidney injury secondary to volume depletion and concurrent ARB use. GUILLERMINA inhibitor was held. Renal function improved. CKs improved. Blood pressure was controlled. He is going to be discharged. DISCHARGE VITAL SIGNS: Temperature 97.8, heart rate 58, respiratory rate 16, blood pressure 125/82, O2 saturation 100% on room air. LAB DATA: White blood cells 6000, hemoglobin 11, hematocrit 35, platelet count 150. Sodium is 137, potassium 3.7, BUN is 37, creatinine is 1.2, glucose 104, calcium 8.3, phosphorus 2.0, bilirubin 0.92, AST is 53, ALT is 43. CK is down to 653. Troponins were never negative. Albumin 3.5. PERTINENT IMAGING: Chest x-ray on admission with no evidence of acute disease. Renal ultrasound negative exam. Echocardiogram with ejection fraction of 55%, no other abnormalities that were significant. EKG with sinus tachycardia, rate 107, QTC of 480. Repeat EKG the next morning with normal sinus rhythm, rate 65, QTC was 455. No T wave inversions noted. DISCHARGE MEDICATIONS: 1. Doxycycline 100 mg p.o. twice daily for 5 days. 2. Norvasc 5 mg p.o. twice daily. DISCHARGE DIET: Regular. DISCHARGE ACTIVITY: As tolerated. DISCHARGE FOLLOWUP: None. DISCHARGE INSTRUCTIONS: The patient understands self care for rhabdomyolysis, acute renal failure. Interventions include take medications as prescribed, maintain adequate nutrition, maintain activity as instructed. Keep followup appointment with physician. Notify physician of worsening symptoms or other concerns. DISCHARGE DISPOSITION: Home. Dictated by LIV Guillen for Reji Sanchez MD Addendum: Patient seen and examined by myself. Agree with LIV. It reflects my assessment and plan. Patient is being discharged in stable condition. Patient recommended to find a primary care doctor. He was encouraged to complete his treatment for MRSA UTI. If fever or flank pain starts he need to come back to ER. cc: LIV Guillen MD MTD
--- NOTE | 2019-03-09 22:12 | NEPHROLOGY PROGRESS NOTE ---
DATE: 03/09/2019 SUBJECTIVE: Patient is sitting up in bed. He is feeling very much better. OBJECTIVE: Vital Signs: Temperature 98.5 degrees, pulse 67, respiratory rate 19, blood pressure 124/75. Intake 2.4 L. Output 1.4 L. General: Middle-aged gentleman resting in bed. Awake alert, no acute distress. HEENT: Normocephalic atraumatic. JUAN. Neck: Supple. No JVD. Cardiovascular: Regular rate and rhythm. Pulmonary: Clear bilaterally. Abdomen: Soft, positive bowel sounds. : Voiding. Extremities: No clubbing, cyanosis, or edema. Integumentary: Skin is warm and dry. LAB DATA: Creatinine 1.2. ASSESSMENT AND PLAN: Acute kidney injury secondary to volume depletion and concurrent angiotensin receptor grzegorz use. The patient's renal function has returned to normal with IV resuscitation. From a renal perspective, we have no objection to discharging the patient at the primaries discretion. We would continue to hold blood pressure medicine that is either an angiotensin- converting enzyme inhibitor or an angiotensin receptor grzegorz until he has a follow up as an outpatient. We would see him in the office in 3 weeks with labs in the interim. I did discuss with the patient that if his blood pressure began rising greater than 140/80, he would need to go on adjunct therapy until his follow-up. From a renal perspective, we would likely change him over to Norvasc at a very low-dose. Right now, his blood pressure is well controlled with no intervention. Dictated by LIV Amaya for Bethel Ricci MD cc: Bethel Ricci MD
== END 2019-03-09 10:44 | disposition home or self-care (01) | DRG 683 ==
LOC: ED 18:01 → 3N 23:54 → SUATTDRO 23:54
PROVIDERS: ATTEND Internal Medicine
CPT/HCPCS: 71020; 71046; 76770; 80053; 80061; 80069; 80076; 81001; 82550; 82553; 82805; 82948; 83605; 83735; 84100; 84484; 85025; 85379; 85610; 85730; 87077; 87088; 87186; 87324; 93005; 93010; 93306; 96360; 96372; 99285; 99291; J1644; J7030; XXXXX